=== PATIENT | male | born 1965 | race Caucasian/White ===

== ENCOUNTER 2017-03-29 15:50 | Emergency (ER) | payer OTHER ==
[~2017-03-29] VITALS: Ht 172.7 cm; Wt 75.8 kg
[2017-03-29 15:55] VITALS: TEMP 36.8; Ht 172.7 cm; Wt 75.8 kg
[2017-03-29] MEDS ORDERED: MoRPHine SULFATE 4 MG/ML 1 ML CARP\\VIAL IV STA (16:09)
[2017-03-29] MEDS ORDERED: ONDANSETRON INJ 2 MG/ML 2 ML VIAL IV STA (16:09)
--- NOTE | 2017-03-29 16:29 | EMERGENCY ROOM VISIT NOTE ---
History Report prepared by Jesusita: Pamela Cheung Under the Supervision of: Dr. Sunny Welch M.D. First contact with patient: 16:01 Chief Complaint: SHOULDER PAIN Stated Complaint: POSSIBLE BROKEN L SHOULDER History of Present Illness The patient is a 51 year old male who presents to the Emergency Room with complaints of persistent left shoulder pain starting 1430 today. The patient fell off of a ladder 3-4 feet onto the ground and landed on his left elbow. In the landing he injured his left shoulder. He denies any head injury, LOC, facial injury, dental injury, neck pain, back pain, chest pain, SOB, chest injury, leg pain, or numbness in the hand, wrist, or elbow. He does not have any pain in his arm besides the left shoulder. He has some back and shoulder pain with breathing, but no chest pain. He has not injured his shoulder before. He has a history of sciatica. He took naproxen at 0830 for his sciatica. He last ate at 1230. He is right handed. Source of History: patient Onset: 1430 today Position: shoulder (left) Quality: other (injury) Timing: other (persistent) Associated Symptoms: No LOC, No neck pain, No chest pain, No SOB, No back pain, No numbness Note: Pt denies head injury, facial injury, dental injury, leg pain. Review of Systems See HPI for pertinent positives & negatives. A total of 10 systems reviewed and were otherwise negative. Past Medical & Surgical Medical Problems: (1) Hypertension (2) Sciatica Old medical records were reviewed. Nurse's notes were reviewed and I agree with. Family History FH: heart disease FHx: cancer Hypertension Social History Smoking Status: Never Smoker Marital Status: Housing Status: lives with significant other Occupation Status: employed Current/Historical Medications Scheduled Hctz/Losartan (Hyzaar 12.5MG/50MG), Unknown Dose PO DAILY Naproxen (Naprosyn), 500 MG PO BID Scheduled PRN Oxycodone Ir (Roxicodone Ir), 1-2 TAB PO Q4H PRN for Severe Pain Allergies Uncoded Allergies: PENICILLIN (Allergy, Unknown, rash, 03/29/17) Physical Exam Vital Signs Date Time Temp Pulse Resp B/P (MAP) Pulse Ox O2 Delivery O2 Flow Rate FiO2 03/29/17 17:34 78 18 134/71 94 03/29/17 15:55 36.8 97 20 152/84 95 Room Air Physical Exam General: Non ill appearing middle age male. Well developed well nourished in no acute distress, breathing comfortably on room air. Normal speech HEENT: Normal cephalic atraumatic. Pupils are equal round and reactive to light. Extraocular movements are intact. Oropharynx is pink with moist mucous membranes. No swelling of the mouth lips or tongue. Neck: Supple with a midline trachea. No meningeal signs or stiffness, no JVD or bruits. No Stridor. Chest: Clear to auscultation bilaterally. No wheezes or rhonchi. No increased work of breathing. Heart: regular rate and rhythm. Abdomen: Soft nontender, nondistended without rebound guarding or rigidity. Extremities: No cyanosis clubbing or edema. No calf tenderness or assymetry. Left shoulder has tenderness with movement, normal pulse in the wrist, normal motor and sensation in the wrist hand and elbow, clavicle appearing elevated laterally. Spine/Back. Non tender to palpation. No CVA tenderness Skin: Good turgor without rashes. Neurologic exam: Cranial nerves two through 12 are intact. Motor and sensation are intact and symmetrical throughout. Medical Decision & Procedures ER Provider Diagnostic Interpretation: X-ray results as stated below per interpretation by me and the radiologist: LEFT SHOULDER MIN 2 VIEWS ROUTINE CLINICAL HISTORY: L shoulder pain. Trauma. COMPARISON: None. DISCUSSION: No acute fractures or dislocations the proximal humerus are visualized. There is a left AC joint separation with elevation of the clavicle with respect to the acromion. There is widening of the coracoclavicular distance. IMPRESSION: Left AC joint separation. Electronically signed by: Du Mcfadden M.D. 03/29/2017 4:38 PM Dictated Date/Time: 03/29/2017 4:37 PM Medications Administered Medications (Trade) Dose Ordered Sig/Quyen Route Start Time Stop Time Status Last Admin Dose Admin Morphine Sulfate (MoRPHine SULFATE INJ) 4 mg NOW STAT IV 03/29/17 16:09 03/29/17 16:10 DC 03/29/17 16:19 4 MG Ondansetron HCl (Zofran Inj) 4 mg NOW STAT IV 03/29/17 16:09 03/29/17 16:10 DC 03/29/17 16:19 4 MG Oxycodone HCl (Roxicodone Immediate Rel 5MG Home Pack) 1 homepack UD ONCE PO 03/29/17 17:30 03/29/17 17:31 DC 03/29/17 17:31 1 HOMEPACK ED Course 1602: Past medical records reviewed. The patient was evaluated in room D4B, and a complete history and physical examination were performed. 1609: Zofran Inj 4 mg IV, Morphine Sulfate 4 mg IV. 1626: I reevaluated the patient. He is at X-ray. 1640: I reevaluated the patient. He is doing well. I updated him on the results. I ordered a sling for him. 1715: I discussed the patient's case with Dr. Beltran, Beny and [facility]. He has seen the patient and will follow up in the office as an outpatient. 1720: Upon reevaluation, the patient is doing well. I discussed the results and treatment plan with him. He verbalized agreement of the treatment plan. The patient was discharged home. 1730: Oxycodone HCl 1 homepack PO. Medical Decision Differentials include, but are not limited to; shoulder dislocation, AC separation, fracture, rotator cuff injury. This patient comes in as described above. He was placed in room before. He comes in after injuring her shoulder. He has difficulty with movement of shoulder however distally is neurologically and neurovascularly intact and other injuries or complaints. IV access established in the opposite arm is given morphine 4 mg IV and Zofran 4 mg IV. He is not driving. X-rays are obtained of the shoulder and shows before meals separation. There is a fair amount of separation with several millimeters. No fracture or dislocation. I did discuss the case Dr. Beltran who was in the emergency department and he went back and talked to the patient and is going to a follow-up with the patient in the office this week. The patient is to use a a sling. Continue use of NSAID and for breakthrough pain use OxyIR 5 mg, one or 2 pills every 4 to 6 hours as needed. He was warned that OxyIR could make him drowsy and of do not take before drinking, driving, working. He was encouraged return if: Numbness or weakness, worsening symptoms, fever chills, any problems or concerns. Medication Reconciliation: I attest that I have personally reviewed the patient' s current medication list. Blood Pressure Screening: Patient was found to have a slightly elevated blood pressure due to circumstances. I do not believe that the patient requires hypertension monitoring. Consults Time Called: 1700 Consulting Physician: Beny Richard and [facility] Orthopedic surgery Returned Call: 1715 I discussed the patient's case with him. He has seen the patient and will follow up in the office as an outpatient. Impression Primary Impression: AC separation Scribe Attestation The scribe's documentation has been prepared under my direction and personally reviewed by me in its entirety. I confirm that the note above accurately reflects all work, treatment, procedures, and medical decision making performed by me. Departure Information Dispostion Home / Self-Care Prescriptions Oxycodone Ir (Roxicodone Ir) 5 Mg Tab 1-2 TAB PO Q4H Y for Severe Pain, #24 TAB Prov: Sunny Welch M.D. 03/29/17 Referrals Koby Gonzalez M.D. (PCP) Sunny Beltran, DO Forms HOME CARE DOCUMENTATION FORM, IMPORTANT VISIT INFORMATION Patient Instructions My [facility] Additional Instructions REst Use Sling Use OxyIR 5 mg, 1-2 pills every 4-6 hpurs as needed OxyIR may make you drowsy-Do not take before drinking, driving, or working REturn if: worsening of symptoms, numbness or weakness, any new problems or concerns Follow-up with Dr. Beltran this week for recheck
--- NOTE | 2017-03-29 16:39 | DIAGNOSTIC IMAGING REPORT ---
LEFT SHOULDER MIN 2 VIEWS ROUTINE CLINICAL HISTORY: L shoulder pain. Trauma. COMPARISON: None. DISCUSSION: No acute fractures or dislocations the proximal humerus are visualized. There is a left AC joint separation with elevation of the clavicle with respect to the acromion. There is widening of the coracoclavicular distance. IMPRESSION: Left AC joint separation. Electronically signed by: Du Mcfadden M.D. 03/29/2017 4:38 PM Dictated Date/Time: 03/29/2017 4:37 PM
[2017-03-29] MEDS ORDERED: HYZ/50125 PO (17:13)
[2017-03-29] MEDS ORDERED: NAPR-1169 PO (17:13)
[2017-03-29] MEDS ORDERED: OXYC1TAB3 PO (17:24)
[2017-03-29] MEDS ORDERED: OXYCODONE IR HOME PACK PO ONE (17:30)
[2017-03-29 17:34] VITALS: BP 134/71; PULSE 78; O2SAT 94
[2017-03-31] MEDS ORDERED: ACET-1311 PO (14:07)
[2017-03-31] MEDS ORDERED: LISI-787 PO (14:07)
[2017-03-31] MEDS ORDERED: OMEG10007 PO (14:07)
[2017-04-03] MEDS ORDERED: KETO10TA PO (12:57)
[2017-04-03] MEDS ORDERED: OXYC-57 PO (12:57)
== END 2017-03-29 17:35 | disposition home or self-care (01) ==
LOC: C.EDB 15:52 → C.EDD 17:35
DX: S43.109A Unspecified dislocation of unspecified acromioclavicular joint, initial encounter (principal); W11.XXXA Fall on and from ladder, initial encounter; I10 Essential (primary) hypertension; Z82.49 Family history of ischemic heart disease and other diseases of the circulatory system

== ENCOUNTER → 2017-03-31 | Outpatient (CLI) | payer OTHER ==
[~2017-03-31] MED LIST: ACET-1311 PO; HYZ/50125 PO; KETO10TA PO; LISI-787 PO; NAPR-1169 PO; OMEG10007 PO; OXYC-57 PO; OXYC1TAB3 PO
[2017-03-31 14:50] LABS: BASO % 0.6 %; BASO ABS # 0.05 K/uL (0-0.2); COMPLETE YES; EOS % 2.2 %; HEMATOCRIT 40.9 % (42-52); IG% 0.1 %; LYMPH % 18.6 %; LYMPH ABS # 1.59 K/uL (1.2-3.4); MEAN CORPUSCULAR HEMOGLOBIN 29.8 pg (25-34); MEAN CORPUSCULAR HGB CONC 34.2 g/dl (32-36); MEAN PLATELET VOLUME 8.4 fL (7.4-10.4); MONO % 6.9 %; NEUT % 71.6 %; PLATELET COUNT 308 K/uL (130-400); WHITE BLOOD COUNT 8.57 K/uL (4.8-10.8)
[2017-03-31 15:17] LABS: BLOOD UREA NITROGEN 14 mg/dl (7-18); BUN/CREATININE RATIO 17.5 (10-20); CALCIUM 9.8 mg/dl (8.5-10.1); CARBON DIOXIDE 28 mmol/L (21-32); CHLORIDE 102 mmol/L (98-107); CREATININE 0.77 mg/dl (0.60-1.40); GLUCOSE 83 mg/dl (70-99); POTASSIUM 3.5 mmol/L (3.5-5.1); SODIUM 139 mmol/L (136-145)
== END | disposition home or self-care (01) ==
LOC: C.CPL 13:28
PROVIDERS: ATTEND Orthopaedic Surgery
DX: S43.102A Unspecified dislocation of left acromioclavicular joint, initial encounter (principal); X58.XXXA Exposure to other specified factors, initial encounter

== ENCOUNTER → 2017-04-03 | Day surgery (SDC) | payer OTHER ==
[2017-03-31 14:07] VITALS: Ht 172.7 cm; Wt 77.3 kg
[~2017-04-03] VITALS: Ht 172.7 cm; Wt 77.3 kg
[~2017-04-03] MED LIST changes: +ATROPINE SULFATE 0.1 MG/ML 5ML SYR IV PRN; +BUPIVACAINE/EPINEPHRINE 0.25% 1:200,000 30 ML VIAL ONE; +CLINDAMYCIN PHOS 150 MG/ML 2 ML VIAL IV SCH; +DEXAMETHASONE SOD INJ 4 MG/ML VIAL ONE; +EpHEDrine SULFATE INJ 50 MG/ML AMP IV PRN; +EpINEphrine INJ 1MG/ML AMP 1 MG/ML AMP ONE; +FENTANYL CITRATE INJ 50 MCG/1 ML 2 ML VIAL ONE; +GLYCOPYRROLATE INJ 0.2 MG/ML VIAL ONE; +HYDROmorphone INJ 1 MG/ML SYR IV PRN; -HYZ/50125 PO; +LACTATED RINGER'S 1000ML 1,000 ML IV SCH; +LIDOCAINE HCL 1% MPF 2 ML VIAL ONE; +MIDAZOLAM HCL 1 MG/ML 2ML VIAL ONE; +ONDANSETRON INJ 2 MG/ML 2 ML VIAL IV PRN; +ONDANSETRON INJ 2 MG/ML 2 ML VIAL ONE; -OXYC1TAB3 PO; +OXYCODONE/ACETAMINOPHEN 5-325 TAB PO PRN; +ROCURONIUM BROMIDE 10 MG/ML 5 ML VIAL ONE; +ROPIVACAINE 0.5% 5 MG/ML 30 ML VIAL ONE; +SODIUM CHLORIDE 0.9% 1000ML 1,000 ML IV SCH
--- NOTE | 2017-04-03 09:51 | History & Physical Bridge Note ---
H&P Re-Evaluation Bridge Note: I have examined the patient, reviewed the History & Physical and in the interval since the performance of the History & Physical I have noted the following changes of clinical significance: No changes noted
--- NOTE | 2017-04-03 12:30 | DIAGNOSTIC IMAGING REPORT ---
INTRAOPERATIVE LEFT SHOULDER SINGLE VIEW CLINICAL HISTORY: LEFT SHOULDER ARTHROSCOPIC AC JOINT RECONSTRUCTION COMPARISON STUDY: Conventional radiographic study dated 03/29/2017 FLUOROSCOPY TIME: 3 seconds of fluoroscopic time was utilized. A single fluoroscopic spot images provided for interpretation.. FINDINGS: A surgical drain projects over the AC joint. The previous identified AC joint separation has been reduced. IMPRESSION: Interval reduction of the previous identified AC joint separation Electronically signed by: Du Mcfadden M.D. 04/03/2017 12:29 PM Dictated Date/Time: 04/03/2017 12:27 PM
--- NOTE | 2017-04-03 12:59 | Discharge Instructions-SurgCtr ---
Discharge Instructions Date of Service Apr 03, 2017. Visit Reason for Visit: Left Shoulder Dislocation Of Acrmioclavicular Jt Discharge Discharge Diagnosis / Problem: SAME ABOVE Discharge Goals Goal(s): Decrease discomfort, Improve function Medications Stopped Medications Name(s): HELD FISH OIL AND NAPROXEN FOR 72 HOURS. Restart Stopped Medication(s): MAY RESTART FISH OIL 04/04/2017 MAY RESTART NAPROXEN ONCE YOU ARE COMPLETED WITH THE TORADOL TAKE TORADOL EVERY 8 HOURS WITH FOOD. DO NOT TAKE NEEDED Activity Recommendations Activity Limitations: as noted below Lifting Limitations: until after follow-up appointment Exercise/Sports Limitations: until after follow-up appointment Shower/Bathe: tomorrow Anesthesia . Post Anesthesia Instructions: If you have had General Anesthesia or IV Sedation: * Do not drive today. * Resume driving when surgeon permits. * Do not make important decisions or sign legal documents today. * Call surgeon for: 1. Temperature elevations greater than 101 degrees F. 2. Uncontrollable pain. 3. Excessive bleeding. 4. Persistent nausea and vomiting. 5. Medication intolerance (nausea, vomiting or rash). * For nausea and vomiting use only clear liquids such as: tea, soda, bouillon until nausea subsides, then gradually increase diet as tolerated. * If you have any concerns or questions, call your surgeon's office. If physician is unavailable and it is an emergency, call 911 or go to the nearest emergency room. . Instructions / Follow-Up Instructions / Follow-Up MEDICATIONS: * Resume previous medications unless instructed otherwise by your surgeon. * Always take pain medication on a full stomach or with food to avoid upset stomach. * Do not drink alcohol or drive while taking narcotics. * Ibuprofen or Tylenol may be taken if narcotic not needed. SPECIAL CARE INSTRUCTIONS: __ None _X_ Keep extremity elevated and iced x 48 hours; apply ice 20-30 minutes 8-10 times/day. May remove at night. _X_ Sling (WEAR NEEDED FOR COMFORT) __24 hrs/day __ Remove at night __ Shoulder Immobilizer __ 24 hrs/day __ Remove at night _X_ Dressing __ Maintain until seen in office, may shower with plastic over site _X_ Remove dressings in 24-48 hours and then may shower _X_ Cover incisions with band-aids after showering __ Do not remove steri-strips Call physician if chills or temperature rises above 102 degrees or pain unrelieved by prescribed pain medications at . . Diet Recommendations Home Diet: no limitations Fluid Restriction: None Procedures Procedures Performed: Left Shoulder Arthroscopic Acromioclavicular Joint Reconstruction Pending Studies Studies pending at discharge: no Work Instructions Return To Work: after follow-up Lifting Limitations: NO LIFTING WITH LEFT ARM Medical Emergencies . Who to Call and When: Medical Emergencies: If at any time you feel your situation is an emergency, please call 911 immediately. . Non-Emergent Contact Non-Emergency issues call your: Primary Care Provider Call Non-Emergent contact if: you have a fever, temperature is above 101.5 . . "Provider Documentation" section prepared by Joe Ortega. .
[2017-04-03 13:57] VITALS: TEMP 36.5
[2017-04-03 14:49] VITALS: BP 118/73; PULSE 70; O2SAT 95
--- NOTE | 2017-04-03 15:49 | Anesthesia Progress Nt - [facility] ---
Anesthesia Post Op Note Date & Time Apr 03, 2017 at 15:48 Vital Signs Pain Intensity: 0 Vital Signs Past 12 Hours Date Time Temp Pulse Resp B/P (MAP) Pulse Ox O2 Delivery O2 Flow Rate FiO2 04/03/17 14:49 70 18 118/73 (88) 95 Room Air 04/03/17 14:22 69 16 131/79 (96) 95 Room Air 04/03/17 13:57 36.5 79 20 134/80 (98) 95 Room Air 04/03/17 13:46 79 22 145/87 95 04/03/17 13:46 78 22 04/03/17 13:44 36.5 79 20 145/87 95 Room Air 04/03/17 13:41 72 20 150/88 95 04/03/17 13:41 73 20 04/03/17 13:36 76 20 04/03/17 13:36 76 20 142/91 96 04/03/17 13:31 82 22 150/91 98 04/03/17 13:31 81 22 04/03/17 13:26 74 23 155/93 100 04/03/17 13:26 75 23 04/03/17 13:21 65 18 146/91 100 04/03/17 13:21 66 18 04/03/17 13:16 69 21 151/94 100 04/03/17 13:16 69 21 04/03/17 13:11 74 21 149/86 100 04/03/17 13:11 73 21 04/03/17 13:06 75 18 04/03/17 13:06 75 18 151/88 99 04/03/17 13:01 82 23 150/85 99 04/03/17 13:01 81 23 04/03/17 12:56 20 04/03/17 12:56 90 20 144/92 04/03/17 12:55 151/79 04/03/17 12:54 37.0 88 20 151/79 99 Mask 6 04/03/17 11:01 83 16 99 04/03/17 11:01 82 04/03/17 11:00 76 0 99 04/03/17 11:00 76 04/03/17 10:55 76 8 99 04/03/17 10:55 75 04/03/17 10:50 78 04/03/17 10:50 77 18 100 04/03/17 10:45 79 0 97 04/03/17 10:45 79 04/03/17 10:40 71 0 96 04/03/17 10:40 70 04/03/17 10:35 82 0 96 04/03/17 10:35 81 04/03/17 10:30 74 0 97 04/03/17 10:30 75 04/03/17 10:25 72 0 97 04/03/17 10:25 73 04/03/17 10:20 69 04/03/17 10:20 68 0 97 04/03/17 10:15 0 04/03/17 09:18 36.9 71 18 119/77 (91) 97 Room Air Notes Mental Status: alert / awake / arousable, participated in evaluation Pt Amnestic to Procedure: Yes Nausea / Vomiting: adequately controlled Pain: adequately controlled Airway Patency, RR, SpO2: stable & adequate BP & HR: stable & adequate Hydration State: stable & adequate Anesthetic Complications: no major complications apparent
--- NOTE | 2017-04-03 16:04 | [facility] Post Operative Brief Note ---
Immediate Operative Summary Operative Date Apr 03, 2017. Pre-Operative Diagnosis Acromioclavicular Joint Separation Post-Operative Diagnosis Same Procedure(s) Performed Left Shoulder Arthroscopic Acromioclavicular Joint Reconstruction Surgeon Dr. Beltran Textile Screen Maker Surgeon(s) Andrew Ortega PA-C Estimated Blood Loss 10 mL Findings as above Specimens None Complication(s) None Disposition Recovery Room / PACU
== END | disposition home or self-care (01) ==
LOC: X.SURG 08:25
PROVIDERS: ATTEND Orthopaedic Surgery
DX: S43.102A Unspecified dislocation of left acromioclavicular joint, initial encounter (principal); W11.XXXA Fall on and from ladder, initial encounter; Z82.49 Family history of ischemic heart disease and other diseases of the circulatory system; Z80.3 Family history of malignant neoplasm of breast